=== PATIENT | female | born 2000 | race Asian ===

== ENCOUNTER 2024-03-11 06:38 | Outpatient (REF) | payer OTHER, SELFPAY ==
--- NOTE | ~2024-03-11 | US_ITS ---
EXAMINATION: US ABDOMEN COMPLETE CLINICAL INFORMATION: Right upper quadrant pain and elevated liver function tests. COMPARISON: None available. TECHNIQUE: Real-time imaging of the abdominal viscera. FINDINGS: PANCREAS: Normal. ABDOMINAL AORTA: The proximal, mid, and distal segments are normal in caliber. INFERIOR VENA CAVA: Visualized portions are normal. LIVER: There is mild hepatomegaly, with a longitudinal span of 17.3 cm The liver contour is normal. Parenchymal echogenicity is generally increased, with focal sparing within the caudate lobe. No focal hepatic solid lesion. Within the left hepatic lobe medially, a 1.2 cm benign, simple cyst is seen, which requires no imaging follow-up. There is no intrahepatic biliary duct dilatation seen. GALLBLADDER: Normal. The gallbladder is physiologically distended without evidence of stones, sludge, polyps, wall thickening or pericholecystic fluid. COMMON BILE DUCT: Normal in caliber measuring 0.2 cm in diameter. RIGHT KIDNEY: Normal. No hydronephrosis. No renal calculi or focal parenchymal lesions. The kidney measures 10.6 cm in maximum dimension. LEFT KIDNEY: Normal. No hydronephrosis. No renal calculi or focal parenchymal lesions. The kidney measures 11.0 cm in maximum dimension. SPLEEN: Normal. The spleen measures 10.1 cm in maximum dimension. FREE FLUID: None. US/US abdomen complete IMPRESSION: 1. There is mild hepatomegaly. 2. There is increased hepatic echotexture with focal sparing in the caudate lobe. The appearance suggests fatty infiltration. No focal hepatic mass or intrahepatic biliary ductal dilatation is seen. Electronically signed by: Jama Zheng MD 03/11/2024 06:36 PM EDT
== END 2024-03-11 06:39 | disposition home or self-care (01) ==
LOC: HO.UMASIMG 06:38
PROVIDERS: Visit Provider Family Medicine
DX: R10.10 Upper abdominal pain, unspecified (principal); E03.9 Hypothyroidism, unspecified
CPT/HCPCS: 76700